=== PATIENT | male | born 1975 ===

== ENCOUNTER 2017-03-25 20:50 | Emergency (ER) | payer MEDICAID ==
[2017-03-25 21:01] VITALS: BP 162/92; PULSE 73; RESP 18; TEMP 98.4; O2SAT 98
--- NOTE | 2017-03-25 21:36 | C.PDOC ---
History Of Present Illness Patient is a 41 y/o male, whose PMHx includes depression, bipolar disorder, and substance abuse, that presents to the ED for evaluation of suicidal ideation, and depression. Patient states that today was his sister's birthday, and felt depressed at the graveyard. Pt states he wants to hurt himself, but denies any specific plan. Patient has had previous psych admissions, with history of cutting himself 2 years ago. Otherwise, denies any physical complaints at this time. Time Seen by Provider: 03/25/17 21:23 Chief Complaint (Nursing): Psychiatric Evaluation History Per: Patient History/Exam Limitations: no limitations Onset/Duration Of Symptoms: Gradual Current Symptoms Are (Timing): Still Present Severity: None Pain Scale Rating Of: 0 Associated Symptoms: Suicidal Thoughts. denies: Suicidal Plan Involuntary Hold By: None Recent travel outside of the [place]: No Additional History Per: Prior Records Past Medical History Reviewed: Historical Data, Nursing Documentation, Vital Signs Vital Signs: Last Vital Signs Temp 98.4 F 03/25/17 20:58 Pulse 73 03/25/17 20:58 Resp 18 03/25/17 20:58 BP 162/92 H 03/25/17 20:58 Pulse Ox 98 03/25/17 21:39 - Medical History PMH: Anxiety, Bipolar Disorder, Depression, Hepatitis (C) Denies: Diabetes, HIV, HTN, Chronic Kidney Disease, Seizures, Sexually Transmitted Disease - [facility] Procedures DETOXIFICATION SERVICES FOR SUBSTANCE ABUSE TREATMENT (11/21/16) GROUP PSYCHOTHERAPY (04/06/16) INDIVIDUAL PSYCHOTHERAPY, COGNITIVE-BEHAVIORAL (11/21/16) INDIVIDUAL PSYCHOTHERAPY, SUPPORTIVE (11/21/16) MEDICATION MANAGEMENT (07/13/16) MEDS MGMT FOR SUBSTANCE ABUSE TREATMENT, ANTABUSE (11/09/15) MEDS MGMT FOR SUBSTANCE ABUSE TREATMENT, METHADONE MAINT (11/21/16) Family History: States: Unknown Family Hx - Social History Hx Tobacco Use: Yes Hx Alcohol Use: Yes Hx Substance Use: Yes (opiods) - Immunization History Hx Tetanus Toxoid Vaccination: No Hx Influenza Vaccination: No Hx Pneumococcal Vaccination: No Review Of Systems Except As Marked, All Systems Reviewed And Found Negative. Constitutional: Negative for: Fever, Chills Cardiovascular: Negative for: Chest Pain Respiratory: Negative for: Shortness of Breath Gastrointestinal: Negative for: Nausea, Vomiting, Abdominal Pain Psych: Positive for: Depression, Suicidal ideation Physical Exam - Physical Exam Appears: Non-toxic, No Acute Distress, Other (flat affect, depressed) Skin: Normal Color, Warm, Dry Head: Atraumatic, Normacephalic Eye(s): bilateral: Normal Inspection, EOMI Neck: Normal ROM, Supple Chest: Symmetrical Cardiovascular: Rhythm Regular Respiratory: Normal Breath Sounds, No Rales, No Rhonchi Gastrointestinal/Abdominal: Soft, No Tenderness Neurological/Psych: Oriented x3, Normal Speech, Normal Cognition ED Course And Treatment - Laboratory Results Result Diagrams: 03/25/17 21:35 03/25/17 21:35 Lab Interpretation: No Acute Changes O2 Sat by Pulse Oximetry: 98 (on RA) Pulse Ox Interpretation: Normal Progress Note: Labs ordered and reviewed. Patient evaluated by crisis and case was discussed with Dr Driscoll. Patient is well known to them and was given referral for follow up to outpatient psychiatric services. Disposition - Disposition Disposition: HOME/ ROUTINE Disposition Time: 22:50 Condition: STABLE Instructions: Depression (ED), Suicide Prevention for Adults (ED) - Clinical Impression Clinical Impression: Depression - Scribe Statement The provider has reviewed the documentation as recorded by the Leoraibanna Parsons Provider Attestation: All medical record entries made by the Leoraibanna were at my direction and personally dictated by me. I have reviewed the chart and agree that the record accurately reflects my personal performance of the history, physical exam, medical decision making, and the department course for this patient. I have also personally directed, reviewed, and agree with the discharge instructions and disposition.
[2017-03-25 21:38] LABS: BASO # 0.2 K/uL (0.0-0.2); BASO % 2.9 % (0.0-2.0); EOS # 0.2 K/uL (0.0-0.7); EOS % 2.7 % (0.0-4.0); HEMATOCRIT 43.7 % (35.0-51.0); LYMPH # 2.8 K/uL (1.0-4.3); LYMPH % 43.8 % (20.0-40.0); MEAN CELL VOLUME 88.7 fL (80.0-94.0); MEAN CORPUSCULAR HEMOGLOBIN 29.5 pg (27.0-31.0); MEAN CORPUSCULAR HGB CONC 33.3 g/dL (33.0-37.0); MEAN PLATELET VOLUME 8.1 fL (7.2-11.7); MONO # 0.7 K/uL (0.0-0.8); MONO % 10.4 % (0.0-10.0); NRBC % 0.1 % (0.0-2.0); RED CELL DISTRIBUTION WIDTH 13.5 % (11.5-14.5); WHITE BLOOD COUNT 6.4 K/uL (4.8-10.8)
[2017-03-25 21:43] LABS: URINE BILIRUBIN NEGATIVE (NEGATIVE); URINE BLOOD NEGATIVE (NEGATIVE); URINE COLOR Yellow (YELLOW); URINE GLUCOSE (UA) NORMAL (Normal); URINE KETONE NEGATIVE (NEGATIVE); URINE LEUKOCYTE ESTERASE NEG Leu/uL (Negative); URINE PROTEIN NEGATIVE (NEGATIVE); URINE UROBILINOGEN NORMAL mg/dL (0.2-1.0); WBC URINE < 1 /hpf (0-5)
[2017-03-25 21:46] LABS: CHLORIDE 97 mmol/L (98-107); SODIUM 140 mmol/L (132-148)
[2017-03-25 21:47] LABS: POTASSIUM 3.9 mmol/L (3.6-5.2)
[2017-03-25 21:48] LABS: GFR AFRICAN-AMERICAN > 60
[2017-03-25 21:49] LABS: ALB/GLOB RATIO 1.3 (1.0-2.1); ALKALINE PHOSPHATASE 81 U/L (38-126); ALT/SGPT 73 U/L (21-72); AST/SGOT 77 U/L (17-59); BLOOD UREA NITROGEN 10 mg/dL (9-20); CALCIUM 8.8 mg/dl (8.6-10.4); CARBON DIOXIDE 28 mmol/L (22-30); GLUCOSE,RANDOM 85 mg/dL (75-110); TOTAL PROTEIN 8.1 g/dL (6.3-8.3)
[2017-03-25 21:50] LABS: ALCOHOL SERUM 30 mg/dl (0-10)
== END 2017-03-25 22:54 | disposition home or self-care (01) ==
LOC: C.ER 20:50
DX: F32.89 Other specified depressive episodes (principal)

== ENCOUNTER 2018-11-25 14:37 | Emergency (ER) | payer MEDICAID ==
[2018-11-25 15:00] VITALS: BP 143/90; PULSE 89; RESP 20; TEMP 98.4; O2SAT 100
--- NOTE | 2018-11-25 15:56 | C.PDOC ---
History Of Present Illness Patient reports low back pain for one month. Denies injury. States that the pain feels like "spasms", especially when he walks. Denies numbness or weakness of the legs, but states "I feel nervous when I walk because of the spasms". Denies fever, saddle anesthesia, bowel/bladder dysfunction. Reports that he went to [facility] two weeks ago, "all they did was a cat scan and it was normal". He has been taking tylenol with some relief, "but the pain keeps coming back". Time Seen by Provider: 11/25/18 15:09 Chief Complaint (Nursing): Back Pain Past Medical History Reviewed: Historical Data, Nursing Documentation, Vital Signs Vital Signs: Last Vital Signs Temp 98.4 F 11/25/18 14:56 Pulse 89 11/25/18 14:56 Resp 20 11/25/18 14:56 BP 143/90 11/25/18 14:56 Pulse Ox 100 11/25/18 14:56 - Medical History PMH: Anxiety, Bipolar Disorder, Depression, Hepatitis (C) Denies: Diabetes, HIV, HTN, Chronic Kidney Disease, Seizures, Sexually Transmitted Disease - [facility] Procedures DETOXIFICATION SERVICES FOR SUBSTANCE ABUSE TREATMENT (11/21/16) GROUP PSYCHOTHERAPY (04/06/16) INDIVIDUAL PSYCHOTHERAPY, COGNITIVE-BEHAVIORAL (11/21/16) INDIVIDUAL PSYCHOTHERAPY, SUPPORTIVE (11/21/16) MEDICATION MANAGEMENT (07/13/16) MEDS MGMT FOR SUBSTANCE ABUSE TREATMENT, ANTABUSE (11/09/15) MEDS MGMT FOR SUBSTANCE ABUSE TREATMENT, METHADONE MAINT (11/21/16) Family History: States: Unknown Family Hx - Social History Hx Tobacco Use: Yes Hx Alcohol Use: No Hx Substance Use: Yes (opiods) - Immunization History Hx Tetanus Toxoid Vaccination: No (unk) Hx Influenza Vaccination: No Hx Pneumococcal Vaccination: (unk) Review Of Systems Except As Marked, All Systems Reviewed And Found Negative. Constitutional: Negative for: Fever Cardiovascular: Negative for: Chest Pain Respiratory: Negative for: Cough, Shortness of Breath Gastrointestinal: Negative for: Nausea, Vomiting, Abdominal Pain, Diarrhea Genitourinary: Negative for: Dysuria, Frequency, Incontinence Musculoskeletal: Positive for: Back Pain. Negative for: Neck Pain, Leg Pain Skin: Negative for: Rash Neurological: Negative for: Weakness, Numbness Physical Exam - Physical Exam Appears: Well, Non-toxic, No Acute Distress Skin: Normal Color, Warm, Dry Head: Atraumatic, Normacephalic Eye(s): bilateral: Normal Inspection Oral Mucosa: Moist Neck: Normal Chest: Symmetrical Cardiovascular: Rhythm Regular Respiratory: Normal Breath Sounds Gastrointestinal/Abdominal: Normal Exam Back: Normal Inspection, No CVA Tenderness, No Vertebral Tenderness, Muscle Spasm (bilateral paravertebral), No Paraspinal Tenderness Extremity: No Tenderness, Other (Patient able to bear weight on b/l legs, but ambulates slowly due to back pain) Neurological/Psych: Oriented x3, Normal Motor, Normal Sensation Gait: Other (Slow secondary to back pain) ED Course And Treatment O2 Sat by Pulse Oximetry: 100 Medical Decision Making Medical Decision Making: Patient agitated during exam, somewhat uncooperative, while palpating back patient states "stop touching me, I already told you I have spasms". While asking about his recent [facility] visit, he stated that he didn't want to answer any more questions. Said "nevermind" and eloped from the ED. Patient had some back pain when rising from his chair but was able to ambulate out of the ED. Disposition - Disposition Disposition: ELOPEMENT - ER ONLY Disposition Time: 16:15 Condition: STABLE Forms: [facility] (Arabic) - Clinical Impression Clinical Impression: Low back pain
== END 2018-11-25 16:16 | disposition left against medical advice (07) ==
LOC: C.ER 14:37
DX: M54.5 Low back pain (principal); Z72.0 Tobacco use; F31.9 Bipolar disorder, unspecified; F41.9 Anxiety disorder, unspecified